=== PATIENT | female | born 1960 | race Caucasian/White ===

== ENCOUNTER 2017-05-05 01:37 | Emergency (ER) | payer OTHER ==
[2017-05-05] MEDS: SOD CHLORIDE 0.9% 1,000 ML IV (06:45)
[2017-05-05 07:02] LABS: ADD MAN DIFF? NO
[2017-05-05 07:12] LABS: ADD UMIC NO; UR ASCORBIC ACID NEGATIVE (NEGATIVE); UR BILIRUBIN (Dip) NEGATIVE (NEGATIVE); UR BLOOD (Dip) NEGATIVE (NEGATIVE); UR CLARITY CLEAR (CLEAR); UR COLOR YELLOW (YELLOW); UR GLUCOSE (Dip) NEGATIVE (NEGATIVE); UR KETONES (Dip) NEGATIVE (NEGATIVE); UR LEUKOCYTE ESTERASE (Dip) NEGATIVE Leu/ul (NEGATIVE); UR NITRITE (Dip) NEGATIVE (NEGATIVE); UR SPECIFIC GRAVITY (Dip) 1.011 (1.003-1.030); UR TOTAL PROTEIN (Dip) NEGATIVE (NEGATIVE); UR UROBILINOGEN (Dip) NEGATIVE (NEGATIVE)
[2017-05-05 07:22] LABS: BASOPHILS % 0.4 % (0.0-2.0); EOSINOPHILS % 1.6 % (0.0-7.0); HEMATOCRIT 37.6 % (37.0-47.0); HEMOGLOBIN 13.2 g/dl (12.0-16.0); LYMPHOCYTES # 1.2 10^3/ul (0.8-2.9); MEAN CORPUSCULAR HEMOGLOBIN 31.5 pg (29.0-33.0); MEAN CORPUSCULAR HGB CONC 35.1 g/dl (32.0-37.0); MEAN CORPUSCULAR VOLUME 89.7 fl (82.0-101.0); MEAN PLATELET VOLUME 9.5 fl (7.4-10.4); MONOCYTE # 0.3 10^3/ul (0.3-0.9); MONOCYTES % 9.9 % (0.0-11.0); NEUTROPHILS % 40.7 % (39.0-77.0); PLATELET COUNT 138 10^3/UL (140-415); RED BLOOD COUNT 4.19 10^6/ul (4.20-5.40); RED CELL DISTRIBUTION WIDTH 11.9 % (11.5-14.5)
[2017-05-05 07:22] LABS: WHITE BLOOD COUNT 2.5 10^3/ul (4.8-10.8)
[2017-05-05 07:26] LABS: ALANINE AMINOTRANSFERASE 43 IU/L (13-69); ALBUMIN 4.2 g/dl (3.3-4.9); ALBUMIN/GLOBULIN RATIO 1.44; ALKALINE PHOSPHATASE 102 IU/L (42-121); ANION GAP 19 (8-16); ASPARTATE AMINO TRANSFERASE 30 IU/L (15-46); BILIRUBIN,INDIRECT 0.3 mg/dl (0-1.1); BILIRUBIN,TOTAL 0.3 mg/dl (0.2-1.3); BLOOD UREA NITROGEN 10 mg/dl (7-20); CALCIUM 9.3 mg/dl (8.4-10.2); CARBON DIOXIDE 27 mmol/L (21-31); CHLORIDE 107 mmol/L (97-110); CREATININE 0.73 mg/dl (0.44-1.00); GLUCOSE 106 mg/dl (70-220); POTASSIUM 4.5 mmol/L (3.5-5.1); SODIUM 148 mmol/L (135-144); TOTAL PROTEIN 7.1 g/dl (6.1-8.1)
== END 2017-05-05 08:40 | disposition home or self-care (01) ==
LOC: FTE 01:37
DX: R42 Dizziness and giddiness (principal); B34.9 Viral infection, unspecified; Z85.528 Personal history of other malignant neoplasm of kidney
CPT/HCPCS: 80053; 81003; 85025; 99284-25

== ENCOUNTER 2019-01-24 18:17 | Emergency (ER) | payer OTHER | END 2019-01-24 19:31 | disposition home or self-care (01) | LOC: E/R 19:31 | DX: S59.901A Unspecified injury of right elbow, initial encounter (principal); W22.8XXA Striking against or struck by other objects, initial encounter; Y92.9 Unspecified place or not applicable; Z85.528 Personal history of other malignant neoplasm of kidney | CPT/HCPCS: 73080; 73080-RT; 99283-25 ==